=== PATIENT | female | born 1975 | race Two or more races ===

== ENCOUNTER → 2021-03-14 | Outpatient (CLI) | payer OTHER ==
[~2021-03-14] MED LIST: ALEVE220 MG PO; AUGMENTIN 875-1 EACH PO; NORCO 5-325 TA1 EACH PO; NORCO 7.5-3251 EACH PO; TRANDATE 100 M100 MG PO; TYLENOL 500 MG500 MG PO; ZOFRAN4 MG PO; ZOLOFT50 MG PO
[2021-03-14 08:51] LABS: HEMOGLOBIN 14.1 gm/dl (12.3-15.3); RED BLOOD COUNT 4.76 M/UL (4.00-5.10); WHITE BLOOD COUNT 7.5 K/UL (4.5-11.0)
[2021-03-14 09:12] LABS: BUN/CREATININE RATIO 14 (0-10)
[2021-03-15 08:14] LABS: THYROXINE (T4) 7.6 ug/dL (4.5-12.0)
== END ==
LOC: LAB 06:57
PROVIDERS: Nurse Practitioner Family
DX: Z13.1 Encounter for screening for diabetes mellitus (principal); Z13.220 Encounter for screening for lipoid disorders; Z13.228 Encounter for screening for other metabolic disorders; I10 Essential (primary) hypertension
CPT/HCPCS: 36415; 80053; 80061; 81001; 83036; 84436; 84443; 84480; 85025

== ENCOUNTER → 2021-08-26 | Outpatient (CLI) | payer OTHER ==
[2021-08-26 10:07] LABS: HEMOGLOBIN 13.7 gm/dl (12.3-15.3); RED BLOOD COUNT 4.85 M/UL (4.00-5.10); WHITE BLOOD COUNT 7.1 K/UL (4.5-11.0)
[2021-08-27 07:11] LABS: A/G RATIO 1.2 (1.2-2.2); ALKALINE PHOSPHATASE, S 79 IU/L (44-121); ALT (SGPT) 24 IU/L (0-32); AST (SGOT) 27 IU/L (0-40); BILIRUBIN, TOTAL 0.4 mg/dL (0.0-1.2); BUN 11 mg/dL (6-24); BUN/CREATININE RATIO 16 (9-23); CALCIUM, SERUM 9.2 mg/dL (8.7-10.2); CARBON DIOXIDE, TOTAL 23 mmol/L (20-29); CHLORIDE, SERUM 101 mmol/L (96-106); CREATININE, SERUM 0.68 mg/dL (0.57-1.00); EGFR IF AFRICN AM 120 (>59); EGFR IF NONAFRICN AM 105 (>59); ESTIM. AVG GLU (EAG) 131 mg/dL (.); GLOBULIN, TOTAL 3.4 g/dL (1.5-4.5); GLUCOSE, SERUM 112 mg/dL (65-99); HEMOGLOBIN A1C 6.2 % (4.8-5.6); POTASSIUM, SERUM 4.3 mmol/L (3.5-5.2); PROTEIN, TOTAL, SERUM 7.5 g/dL (6.0-8.5); SODIUM, SERUM 139 mmol/L (134-144)
[2021-08-27 08:13] LABS: CHOLESTEROL, TOTAL 186 mg/dL (100-199); HDL CHOLESTEROL 29 mg/dL (>39); LDL CHOLESTEROL CALC 116 mg/dL (0-99); T. CHOL/HDL RATIO 6.4 ratio (0.0-4.4); THYROXINE (T4) 9.5 ug/dL (4.5-12.0); TRIGLYCERIDES 231 mg/dL (0-149); TRIIODOTHYRONINE (T3) 127 ng/dL (71-180)
[2021-08-28 06:11] LABS: VITAMIN D, 25-HYDROXY 14.6 ng/mL (30.0-100.0)
== END ==
LOC: LAB 09:12
PROVIDERS: Nurse Practitioner Family
DX: I10 Essential (primary) hypertension (principal); R73.03 Prediabetes; E78.5 Hyperlipidemia, unspecified
CPT/HCPCS: 36415; 80053; 80061; 83036; 84436; 84443; 84480; 85025